=== PATIENT | male | born 1995 | race Caucasian/White ===

== ENCOUNTER 2018-03-22 22:21 | Emergency (ER) | payer OTHER ==
[2018-03-23] MEDS ORDERED: ONDANSETRON 4 MG/2 ML VIAL ONE (00:02)
[2018-03-23] MEDS ORDERED: NA CHLORIDE 0.9% 1,000 ML ONE (00:02)
[2018-03-23] MEDS ORDERED: ASPIRIN 81 MG CHEWABLE TABLET ONE (00:02)
[2018-03-23 00:07] LABS: Absolute Lymphocytes (CBC) 1.5 K/uL (0.7-4.9); Absolute Monocytes 0.5 K/uL (0.1-1.3); Absolute Neutrophil 5.4 K/uL (1.8-8.0); Basophils % 0.3 % (0-1.3); Eosinophils % 0.5 % (0-4.4); Hematocrit 41.7 % (39.6-49.0); Lymphocytes % 20.3 % (15.3-44.8); MCH 31.6 pg (27.0-35.0); MCV 91.4 fL (80-100); MPV 8.9 fL (7.6-11.3); Monocytes % 6.9 % (3.3-12.3); RBC Red Blood Cell Count 4.56 M/uL (4.33-5.43)
[2018-03-23 00:11] LABS: Protime INR 1.03
[2018-03-23 00:29] LABS: ALT/SGPT 51 U/L (12-78); AST/SGOT 29 U/L (15-37); Albumin 4.3 g/dL (3.4-5.0); Alkaline Phosphatase 60 U/L (45-117); BUN Blood Urea Nitrogen 13 mg/dL (7-18); Bicarbonate 29 mmol/L (21-32); Bilirubin Direct 0.1 mg/dL (0-0.2); Bilirubin Total 0.4 mg/dL (0.2-1.0); CKMB Creatine Kinase MB < 1.0 ng/mL (0.3-3.6); Creatine Phosphokinase 99 U/L (39-308); Glucose Level 79 mg/dL (74-106); Lipase 126 U/L (73-393); Magnesium 2.1 mg/dL (1.8-2.4); NT PRO-BNP 26 pg/mL (<125); Potassium 3.9 mmol/L (3.5-5.1); Sodium Level 143 mmol/L (136-145)
--- NOTE | 2018-03-23 03:38 | EDPHYS ---
Physician Documentation [facility] Name: Jose Francisco Gomez Age: 23 yrs Sex: Male : 1995 Arrival Date: 03/22/2018 Time: 22:22 Bed 8 Private MD: Jose Chambers ED Physician Howard Zamudio HPI: 03/22 23:17 This 23 yrs old Male presents to ER via Ambulatory with complaints of Chest aggie Pain, Numbness, Shortness Of Breath. 23:17 The patient or guardian reports chest pain that is located primarily in the substernal aggie area, anterior chest wall, bilaterally. The pain does not radiate. Associated signs and symptoms: The patient has no apparent associated signs or symptoms. The chest pain is described as a heaviness, a pressure. Duration: The patient or guardian reports multiple episodes, with no pattern. Modifying factors: The symptoms are alleviated by nothing. the symptoms are aggravated by nothing. Severity of pain: At its worst the pain was mild in the emergency department the pain is unchanged. The patient has not experienced similar symptoms in the past. Historical: - Allergies: 22:39 No Known Allergies; ak1 - Home Meds: 22:39 None [Active]; ak1 - PMHx: 22:39 MVP; ak1 - PSHx: 22:39 None; ak1 - Immunization history:: Adult Immunizations unknown. - Social history:: Smoking status: Patient uses tobacco products, smokes one-half pack cigarettes per day. - Ebola Screening: : No symptoms or risks identified at this time. - Family history:: not pertinent. ROS: 23:17 Constitutional: Negative for fever, chills, and weight loss, Eyes: Negative for injury, aggie pain, redness, and discharge, ENT: Negative for injury, pain, and discharge, Neck: Negative for injury, pain, and swelling, Respiratory: Negative for shortness of breath, cough, wheezing, and pleuritic chest pain, Abdomen/GI: Negative for abdominal pain, nausea, vomiting, diarrhea, and constipation, Back: Negative for injury and pain, : Negative for injury, bleeding, discharge, and swelling, MS/Extremity: Negative for injury and deformity, Skin: Negative for injury, rash, and discoloration, Neuro: Negative for headache, weakness, numbness, tingling, and seizure, Psych: Negative for depression, anxiety, suicide ideation, homicidal ideation, and hallucinations, Allergy/Immunology: Negative for hives, rash, and allergies, Endocrine: Negative for neck swelling, polydipsia, polyuria, polyphagia, and marked weight changes, Hematologic/Lymphatic: Negative for swollen nodes, abnormal bleeding, and unusual bruising. 23:17 Cardiovascular: Positive for chest pain. Exam: 23:17 Constitutional: This is a well developed, well nourished patient who is awake, alert, aggie and in no acute distress. Head/Face: Normocephalic, atraumatic. Eyes: Pupils equal round and reactive to light, extra-ocular motions intact. Lids and lashes normal. Conjunctiva and sclera are non-icteric and not injected. Cornea within normal limits. Periorbital areas with no swelling, redness, or edema. ENT: Nares patent. No nasal discharge, no septal abnormalities noted. Tympanic membranes are normal and external auditory canals are clear. Oropharynx with no redness, swelling, or masses, exudates, or evidence of obstruction, uvula midline. Mucous membranes moist. Neck: Trachea midline, no thyromegaly or masses palpated, and no cervical lymphadenopathy. Supple, full range of motion without nuchal rigidity, or vertebral point tenderness. No Meningismus. Chest/axilla: Normal chest wall appearance and motion. Nontender with no deformity. No lesions are appreciated. Cardiovascular: Regular rate and rhythm with a normal S1 and S2. No gallops, murmurs, or rubs. Normal PMI, no JVD. No pulse deficits. Respiratory: Lungs have equal breath sounds bilaterally, clear to auscultation and percussion. No rales, rhonchi or wheezes noted. No increased work of breathing, no retractions or nasal flaring. Abdomen/GI: Soft, non-tender, with normal bowel sounds. No distension or tympany. No guarding or rebound. No evidence of tenderness throughout. Back: No spinal tenderness. No costovertebral tenderness. Full range of motion. Male : Normal genitalia with no discharge or lesions. Skin: Warm, dry with normal turgor. Normal color with no rashes, no lesions, and no evidence of cellulitis. MS/ Extremity: Pulses equal, no cyanosis. Neurovascular intact. Full, normal range of motion. Neuro: Awake and alert, GCS 15, oriented to person, place, time, and situation. Cranial nerves II-XII grossly intact. Motor strength 5/5 in all extremities. Sensory grossly intact. Cerebellar exam normal. Normal gait. Psych: Awake, alert, with orientation to person, place and time. Behavior, mood, and affect are within normal limits. Vital Signs: 22:39 BP 143 / 92; Pulse 93; Resp 16; Temp 98.2; Pulse Ox 99% on R/A; Weight 99.79 kg (R); ak1 Height 6 ft. 4 in. (193.04 cm) (R); Pain 0/10; 22:52 BP 133 / 73; Pulse 90; Resp 20; Pulse Ox 98% on R/A; mt 23:56 BP 136 / 88; Pulse 81; Resp 16; Pulse Ox 99% on R/A; Pain 0/10; aa1 03/23 00:32 BP 121 / 85; Pulse 70; Resp 16; Pulse Ox 99% on R/A; mt 01:54 BP 125 / 71; Pulse 68; Resp 20; Pulse Ox 99% on R/A; mt 03:04 BP 121 / 73; Pulse 64; Resp 20; Pulse Ox 97% on R/A; Pain 0/10; aa1 03/22 22:39 Body Mass Index 26.78 (99.79 kg, 193.04 cm) [facility] MDM: 03/22 23:07 Patient medically screened. [facility] 23:22 Data reviewed: vital signs, nurses notes, lab test result(s), EKG, radiologic studies. [facility] 03/22 23:16 Order name: Basic Metabolic Panel; Complete Time: 00:44 [facility] 03/22 23:16 Order name: CBC with Diff; Complete Time: 00:44 [facility] 03/22 23:16 Order name: Ckmb; Complete Time: 00:44 [facility] 03/22 23:16 Order name: CPK; Complete Time: 00:44 [facility] 03/22 23:16 Order name: LFT's; Complete Time: 00:44 [facility] 03/22 23:16 Order name: Magnesium; Complete Time: 00:44 [facility] 03/22 23:16 Order name: NT PRO-BNP; Complete Time: 00:44 [facility] 03/22 23:16 Order name: PT-INR; Complete Time: 00:44 [facility] 03/22 23:16 Order name: Ptt, Activated; Complete Time: 00:44 [facility] 03/22 23:16 Order name: Troponin (emerg Dept Use Only); Complete Time: 00:44 [facility] 03/22 23:16 Order name: XRAY Chest (1 view) [facility] 03/22 23:16 Order name: Lipase; Complete Time: 00:44 [facility] 03/22 23:16 Order name: CT Chest For PE Angio [facility] 03/22 22:41 Order name: EKG - Nurse/Tech; Complete Time: 22:41 [facility] 03/22 23:16 Order name: EKG; Complete Time: 23:26 [facility] 03/22 23:16 Order name: Cardiac monitoring; Complete Time: 23:48 [facility] 03/22 23:16 Order name: IV Saline Lock; Complete Time: 23:48 [facility] 03/22 23:16 Order name: Labs collected and sent; Complete Time: 23:48 [facility] 03/22 23:16 Order name: O2 Per Protocol; Complete Time: 23:48 [facility] 03/22 23:16 Order name: O2 Sat Monitoring; Complete Time: 23:48 [facility] Administered Medications: 03/23 00:04 Drug: NS 0.9% 1000 ml Route: IV; Rate: 125 ml/hr; Site: right antecubital; aa1 03:43 Follow up: IV Status: Order to discontinue infusion ak1 00:04 Drug: Aspirin 162 mg Route: PO; aa1 02:38 Follow up: Response: No adverse reaction aa1 00:04 Drug: Zofran 4 mg Route: IVP; Site: right antecubital; aa1 02:38 Follow up: Response: No adverse reaction; Nausea is decreased aa1 Disposition: 03/23/18 03:37 Discharged to Home. Impression: Chest pain, unspecified. - Condition is Stable. - Discharge Instructions: Nonspecific Chest Pain, Nonspecific Chest Pain, [id number], Aspirin and Your Heart. - Medication Reconciliation Form, Thank You Letter, Antibiotic Education, Prescription Opioid Use form. - Follow up: Jose Chambers; When: 2 - 3 days; Reason: Recheck today's complaints, Continuance of care, Re-evaluation by your physician. - Problem is new. - Symptoms have improved. Signatures: Dispatcher [employer] Joanna Mendez RN RN aa1 Robb, Howard, MD MD aggie Krenek, Lacey, RN RN ak1 Corrections: (The following items were deleted from the chart) 03:43 03/22 23:16 Urine Dipstick-Ancillary ordered. aggie ak1 03/23 03:44 03:37 03/23/2018 03:37 Discharged to Home. Impression: Chest pain, unspecified. ak1 Condition is Stable. Discharge Instructions: Nonspecific Chest Pain, Nonspecific Chest Pain, [id number], Aspirin and Your Heart. Forms are Medication Reconciliation Form, Thank You Letter, Antibiotic Education, Prescription Opioid Use. Follow up: Jose Chambers; When: 2 - 3 days; Reason: Recheck today's complaints, Continuance of care, Re-evaluation by your physician. Problem is new. Symptoms have improved. aggie
--- NOTE | 2018-03-23 03:38 | ER ---
Nurse's Notes [facility] Name: Jose Francisco Gomez Age: 23 yrs Sex: Male : 1995 Arrival Date: 03/22/2018 Time: 22:22 Bed 8 Private MD: Jose Chambers Diagnosis: Chest pain, unspecified Presentation: 03/22 22:37 Presenting complaint: Patient states: sharp chest pains intermittent since March 11. ak1 pt with hx MVP sees Dr. Dick. pt c/o increased frequency of chest pains under bilateral breast with SOB 1 hour ON AIR TALENT. Transition of care: patient was not received from another setting of care. Onset of symptoms is unknown. Risk Assessment: Do you want to hurt yourself or someone else? Patient reports no desire to harm self or others. Initial Sepsis Screen: Does the patient meet any 2 criteria? No. Patient's initial sepsis screen is negative. Does the patient have a suspected source of infection? No. Patient's initial sepsis screen is negative. Care prior to arrival: None. 22:37 Method Of Arrival: Ambulatory ak1 22:37 Acuity: MARKY 3 ak1 Triage Assessment: 22:39 General: Appears in no apparent distress. Behavior is calm, cooperative. Pain: ak1 Complains of pain in diaphragm, right breast and left breast. EENT: No signs and/or symptoms were reported regarding the EENT system. Neuro: No deficits noted. Cardiovascular: Reports chest pain, shortness of breath. Respiratory: Reports shortness of breath. GI: No signs and/or symptoms were reported involving the gastrointestinal system. : No signs and/or symptoms were reported regarding the genitourinary system. Derm: No signs and/or symptoms reported regarding the dermatologic system. Musculoskeletal: No signs and/or symptoms reported regarding the musculoskeletal system. Historical: - Allergies: 22:39 No Known Allergies; ak1 - Home Meds: 22:39 None [Active]; ak1 - PMHx: 22:39 MVP; ak1 - PSHx: 22:39 None; ak1 - Immunization history:: Adult Immunizations unknown. - Social history:: Smoking status: Patient uses tobacco products, smokes one-half pack cigarettes per day. - Ebola Screening: : No symptoms or risks identified at this time. - Family history:: not pertinent. Screenin:40 Abuse screen: Denies threats or abuse. Denies injuries from another. Abuse screen: ak1 Denies threats or abuse. Nutritional screening: No deficits noted. Tuberculosis screening: No symptoms or risk factors identified. Fall Risk None identified. Assessment: 22:40 Pain: Pain radiates to left foot, left arm and left leg Pain began March 11. ak1 22:42 General: Appears in no apparent distress. comfortable, Behavior is calm, cooperative, aa1 appropriate for age. Pain: Complains of pain in left breast and right breast and diaphragm Pain currently is 0 out of 10 on a pain scale. Quality of pain is described as pressure, Pain began 03/11/18 Is intermittent. Neuro: Level of Consciousness is awake, alert, obeys commands, Oriented to person, place, time, situation, Moves all extremities. Full function Gait is steady, Speech is normal. Cardiovascular: Reports chest pain, shortness of breath, Denies diaphoresis, lightheadedness, nausea, palpitations, vomiting, Heart tones S1 S2 present Capillary refill Clubbing of nail beds is absent JVD is absent Patient's skin is warm and dry. Rhythm is regular. Respiratory: Reports shortness of breath at rest Airway is patent Respiratory effort is even, unlabored, Respiratory pattern is regular, symmetrical. GI: No signs and/or symptoms were reported involving the gastrointestinal system. : No signs and/or symptoms were reported regarding the genitourinary system. EENT: No signs and/or symptoms were reported regarding the EENT system. Derm: Skin is intact, is healthy with good turgor, Skin is pink, warm \T\ dry. Musculoskeletal: Circulation, motion, and sensation intact. Capillary refill < 3 seconds. 03/23 00:05 Reassessment: Patient appears in no apparent distress at this time. Patient and/or aa1 family updated on plan of care and expected duration. Pain level reassessed. Patient is alert, oriented x 3, equal unlabored respirations, skin warm/dry/pink. Awaiting lab results and CT scan. Pt reports feeling nauseated after having IV and blood draw. Medicated with Zofran. 01:00 Reassessment: Patient appears in no apparent distress at this time. Patient and/or aa1 family updated on plan of care and expected duration. Pain level reassessed. Patient is alert, oriented x 3, equal unlabored respirations, skin warm/dry/pink. Awaiting CT scan. 02:00 Reassessment: Patient appears in no apparent distress at this time. Patient and/or aa1 family updated on plan of care and expected duration. Pain level reassessed. Patient is alert, oriented x 3, equal unlabored respirations, skin warm/dry/pink. Awaiting CT results. 03:03 Reassessment: Patient appears in no apparent distress at this time. Patient and/or aa1 family updated on plan of care and expected duration. Pain level reassessed. Patient is alert, oriented x 3, equal unlabored respirations, skin warm/dry/pink. Awaiting CT and repeat trop results. Vital Signs: 03/22 22:39 BP 143 / 92; Pulse 93; Resp 16; Temp 98.2; Pulse Ox 99% on R/A; Weight 99.79 kg (R); ak1 Height 6 ft. 4 in. (193.04 cm) (R); Pain 0/10; 22:52 BP 133 / 73; Pulse 90; Resp 20; Pulse Ox 98% on R/A; mt 23:56 BP 136 / 88; Pulse 81; Resp 16; Pulse Ox 99% on R/A; Pain 0/10; aa1 03/23 00:32 BP 121 / 85; Pulse 70; Resp 16; Pulse Ox 99% on R/A; mt 01:54 BP 125 / 71; Pulse 68; Resp 20; Pulse Ox 99% on R/A; mt 03:04 BP 121 / 73; Pulse 64; Resp 20; Pulse Ox 97% on R/A; Pain 0/10; aa1 03/22 22:39 Body Mass Index 26.78 (99.79 kg, 193.04 cm) ak1 ED Course: 03/22 22:22 Patient arrived in ED. ds1 22:22 Jose Chambers MD is Private Physician. ds1 22:38 Triage completed. ak1 22:39 Joanna Morel RN is Primary Nurse. aa1 22:39 Arm band placed on Patient placed in an exam room, on a stretcher, on pulse oximetry, ak1 Patient notified of wait time. 22:40 Patient has correct armband on for positive identification. Placed in gown. Bed in low ak1 position. Call light in reach. Side rails up X 1. Adult w/ patient. Pulse ox on. NIBP on. 22:41 EKG completed in triage. Results shown to MD. ak1 22:41 Patient maintains SpO2 saturation greater than 95% on room air. ak1 23:07 Howard Zamudio MD is Attending Physician. [facility] 23:47 X-ray completed. Portable x-ray completed in exam room. Patient tolerated procedure kw well. 23:47 Inserted saline lock: 20 gauge in right antecubital area, using aseptic technique. il Blood collected. 23:48 XRAY Chest (1 view) In Process Unspecified. EDAZ 03/23 01:30 CT Chest For PE Angio In Process Unspecified. EDAZ 01:53 CT completed. Patient tolerated procedure well. Patient moved to CT via stretcher. Patient moved back from CT. 03:37 Jose Chambers MD is Referral Physician. aggie 03:44 No provider procedures requiring assistance completed. IV discontinued, intact, ak1 bleeding controlled, No redness/swelling at site. Pressure dressing applied. Administered Medications: 00:04 Drug: NS 0.9% 1000 ml Route: IV; Rate: 125 ml/hr; Site: right antecubital; aa1 03:43 Follow up: IV Status: Order to discontinue infusion ak1 00:04 Drug: Aspirin 162 mg Route: PO; aa1 02:38 Follow up: Response: No adverse reaction aa1 00:04 Drug: Zofran 4 mg Route: IVP; Site: right antecubital; aa1 02:38 Follow up: Response: No adverse reaction; Nausea is decreased aa1 Outcome: 03:37 Discharge ordered by . aggie 03:44 Discharged to home ambulatory, with family. ak1 03:44 Condition: improved 03:44 Discharge instructions given to patient, Instructed on discharge instructions, follow up and referral plans. Demonstrated understanding of instructions, follow-up care. 03:44 Patient left the ED. ak1 Signatures: Dispatcher [employer] [facility] Joanna Morel, TATIANNA RN [email or web address] Howard Zamudio MD MD cha Hagler, Ervin Rain Finnegan dsSandi Jeffers Amber, RN RN Aleah Chadwick mt Corrections: (The following items were deleted from the chart) 01:55 03/22 22:52 BP 133 / 73; Pulse 90bpm; Resp 27bpm; Pulse Ox 98% RA; mt mt
--- NOTE | 2018-03-23 08:30 | RAD REPORT ---
EXAM DESCRIPTION: RAD - Chest Single View - 03/22/2018 11:50 pm CLINICAL HISTORY: Chest pain;Dyspnea Chest pain. COMPARISON: Chest For Pe Angio dated 03/23/2018 FINDINGS: Portable technique limits examination quality. The lungs are grossly clear. The heart is normal in size. No displaced fractures. IMPRESSION: No acute intrathoracic process suspected.
--- NOTE | 2018-03-23 08:44 | RAD REPORT ---
EXAM DESCRIPTION: CT - Chest For Pe Angio - 03/23/2018 6:43 am CLINICAL HISTORY: Chest pain. CHEST PAIN COMPARISON: No comparisons TECHNIQUE: CT angiogram of the pulmonary arteries was performed with MIP. All CT scans are performed using dose optimization technique as appropriate and may include automated exposure control or mA/KV adjustment according to patient size. FINDINGS: No evidence of pulmonary thromboembolism. No acute aortic finding demonstrated. The lungs are clear. 2 cm area of soft tissue seen in the prevascular space, nonspecific. No significant pericardial or pleural fluid. No concerning bony finding. IMPRESSION: No evidence of pulmonary thromboembolism. No acute lung findings. 2 cm soft tissue density in the prevascular space may be related to thymic tissue. Advise follow-up C T chest in 6 months for continued surveillance.
--- NOTE | 2018-03-23 21:39 | EKG ---
Test Date: 2018-03-22 Test Time: 22:32:51 Sandblasting Supervisor: MEASUREMENT RESULTS: Intervals: Rate: 84 IL: 160 QRSD: 94 QT: 326 QTc: 385 [place]: P: 43 IL: 160 QRS: 52 T: 56 INTERPRETIVE STATEMENTS: Normal sinus rhythm Normal ECG No previous ECG available for comparison Electronically Signed On 03-23-18 21:38:46 CDT by Jasbir Johnston
== END 2018-03-23 03:44 | disposition home or self-care (01) ==
LOC: ER 22:21
DX: R07.9 Chest pain, unspecified (principal); F17.210 Nicotine dependence, cigarettes, uncomplicated
CPT/HCPCS: 36415; 71045; 71275; 80048; 80076; 82550; 82553; 83690; 83735; 83880; 84484; 85025; 85610; 85730; 93005; 96361; 96374; 99285; J2405; J7030; Q9967

== ENCOUNTER 2021-05-09 12:13 | Emergency (ER) | payer OTHER, SELFPAY ==
[2021-05-09 14:41] LABS: Protime INR 1.03
[2021-05-09 14:42] LABS: Absolute Lymphocytes (CBC) 1.4 K/uL (0.7-4.9); Basophils % 0.2 % (0-1.3); Hematocrit 41.5 % (39.6-49.0); Lymphocytes % 21.2 % (15.3-44.8); MPV 8.7 fL (7.6-11.3); RBC Red Blood Cell Count 4.62 M/uL (4.33-5.43)
[2021-05-09] MEDS ORDERED: NA CHLORIDE 0.9% 1,000 ML ONE (14:44)
[2021-05-09 14:59] LABS: ALT/SGPT 57 U/L (12-78); AST/SGOT 19 U/L (15-37); Albumin 4.4 g/dL (3.4-5.0); Alkaline Phosphatase 63 U/L (45-117); BUN Blood Urea Nitrogen 13 mg/dL (7-18); Bicarbonate 28 mmol/L (21-32); Bilirubin Direct 0.2 mg/dL (0-0.2); Bilirubin Total 0.5 mg/dL (0.2-1.0); Glucose Level 84 mg/dL (74-106); Magnesium 1.8 mg/dL (1.8-2.4); NT PRO-BNP 29 pg/mL (<125); Potassium 4.1 mmol/L (3.5-5.1); Protein, Total 8.1 g/dL (6.4-8.2); Sodium Level 139 mmol/L (136-145); Troponin (Emerg Dept Use Only) < 0.02 ng/mL (0.0-0.045)
--- NOTE | 2021-05-09 15:23 | RAD REPORT ---
EXAM DESCRIPTION: RAD - Chest Single View - 05/09/2021 3:10 pm CLINICAL HISTORY: CHEST PAIN COMPARISON: Chest Single View dated 03/22/2018 FINDINGS: No evidence of edema or pneumonia. The heart size is within normal limits.No acute osseous abnormality. No significant pleural effusions or pneumothorax. IMPRESSION: No acute cardiopulmonary disease.
--- NOTE | 2021-05-09 17:37 | ER ---
Nurse's Notes [facility] Name: Jose Francisco Gomez Age: 26 yrs Sex: Male : 1995 Arrival Date: 05/09/2021 Time: 12:21 Bed 26 Private MD: Diagnosis: Chest pain, unspecified;Palpitations Presentation: 05/09 12:30 Chief complaint: Patient states: "I am having trouble breathing and feel like my heart aa5 is skipping beats". Pt denies recent illness. Coronavirus screen: At this time, the client does not indicate any symptoms associated with coronavirus-19. Ebola Screen: Patient negative for fever greater than or equal to 101.5 degrees Fahrenheit, and additional compatible Ebola Virus Disease symptoms. Risk Assessment: Do you want to hurt yourself or someone else? Patient reports no desire to harm self or others. Onset of symptoms was May 09, 2021. 12:30 Method Of Arrival: Ambulatory aa5 12:30 Acuity: MARKY 3 aa5 12:30 Initial Sepsis Screen: Does the patient meet any 2 criteria? No. Patient's initial aa5 sepsis screen is negative. Does the patient have a suspected source of infection? No. Patient's initial sepsis screen is negative. Historical: - Allergies: 12:31 No Known Allergies; aa5 - PMHx: 12:31 Mitral Valve Prolapse; aa5 - PSHx: 12:31 None; aa5 - Immunization history:: Client reports having NOT received the Covid vaccine. Flu vaccine is not up to date. - Social history:: Smoking status: Patient denies any tobacco usage or history of. Patient/guardian denies using street drugs. Assessment: 14:15 Also complains of diaphoresis, shortness of breath. General: Appears uncomfortable. ch5 General: Appears uncomfortable. Pain: Denies pain. Pain: Denies pain. Pain does not radiate. Pain began 1 day ago. Cardiovascular: Reports Pt reports palpitations today along with Chest discomfort. Denies Chest pain. Pt had near syncopal episode post IV start.Labs sent. Vital Signs: 12:30 BP 117 / 78; Pulse 70; Resp 20 S; Temp 97.5(TE); Pulse Ox 99% on R/A; Weight 71.21 kg aa5 (R); Height 6 ft. 4 in. (193.04 cm) (R); 14:15 BP 89 / 56; Pulse 66; Resp 20; Pulse Ox 100% on R/A; Pain 0/10; ch5 15:00 BP 107 / 72; Pulse 67; Resp 15; Pulse Ox 100% ; jl7 16:00 BP 115 / 69; Pulse 66; Resp 15; Pulse Ox 100% ; jl7 12:30 Body Mass Index 19.11 (71.21 kg, 193.04 cm) aa5 Vitals: 14:15 Cardiac Rhythm Assessment Irregular. ch5 ED Course: 12:21 Patient arrived in ED. ja2 12:30 Arm band placed on. aa5 12:31 Triage completed. aa5 12:35 EKG completed in triage. Results shown to MD. aa5 13:53 Bar Leon PA is PHCP. jmm 13:53 Howard Zamudio MD is Attending Physician. m 14:15 Jose Francisco Mendosa, TATIANNA is Primary Nurse. ch5 15:10 XRAY Chest (1 view) In Process Unspecified. EDMS Administered Medications: 14:28 Drug: NS 0.9% 1000 ml Route: IV; Rate: 1 bolus; Site: right antecubital; 5 Outcome: 17:36 Discharge ordered by MD. [facility] 18:39 Patient left the ED. 5 Signatures: Dispatcher [employer] EDMS Bar Leon PA PA jmm Calderon, Audri, RN RN [email or web address] Amanda Ruano RN RN jlJose Francisco Stanley, TATIANNA RN ch5 Calista Curry [facility] Corrections: (The following items were deleted from the chart) 12:32 12:30 Pulse 70bpm; Resp 20bpm; Spontaneous; Pulse Ox 99% RA; aa5 aa5 12:32 12:31 PMHx: MVP; aa5 aa5 12:33 12:30 Pulse 70bpm; Resp 20bpm; Spontaneous; Pulse Ox 99% RA; Temp 97.5F Temporal; 71.21 aa5 kg Reported; Height 6 ft. 4 in. Reported; BMI: 19.1; aa5 17:05 14:15 BP 89 / 56; Pulse 66bpm; Resp 56bpm; Pulse Ox 100% RA; Pain 0/10; ch5 ch5
--- NOTE | 2021-05-09 17:37 | EDPHYS ---
Physician Documentation [facility] Name: Jose Francisco Gomez Age: 26 yrs Sex: Male : 1995 Arrival Date: 05/09/2021 Time: 12:21 Bed 26 Private MD: MIGUE Physician Howard Zamudoi HPI: 05/09 14:03 This 26 yrs old Male presents to ER via Ambulatory with complaints of Chest jmm Pain. 14:03 The patient or guardian reports chest pain that is located primarily in the substernal jmm area. The pain does not radiate. Associated signs and symptoms: Pertinent positives: palpitations. The chest pain is described as aching. Duration: The patient or guardian reports a single episode, that is still ongoing. Modifying factors: The symptoms are alleviated by nothing. the symptoms are aggravated by nothing. 26-year-old male with history of mitral valve prolapse the presents emerged department with complaints of substernal chest pain beginning approx 1 hour prior to arrival. Patient describes pain as discomfort and palpitations. . Historical: - Allergies: 12:31 No Known Allergies; aa5 - PMHx: 12:31 Mitral Valve Prolapse; aa5 - PSHx: 12:31 None; aa5 - Immunization history:: Client reports having NOT received the Covid vaccine. Flu vaccine is not up to date. - Social history:: Smoking status: Patient denies any tobacco usage or history of. Patient/guardian denies using street drugs. ROS: 14:03 Constitutional: Negative for fever, chills, and weight loss. [facility] 14:03 Respiratory: Negative for shortness of breath, cough, wheezing, and pleuritic chest pain. 14:03 Cardiovascular: Positive for chest pain, palpitations. 14:03 All other systems are negative. Exam: 14:03 Constitutional: This is a well developed, well nourished patient who is awake, alert, jmm and in no acute distress. Head/Face: atraumatic. Eyes: EOMI, no conjunctival erythema appreciated ENT: Moist Mucus Membranes Neck: Trachea midline, Supple Chest/axilla: Normal chest wall appearance and motion. 14:03 Respiratory: Normal respirations, no respiratory distress appreciated Abdomen/GI: Non distended, soft Back: Normal ROM Skin: General appearance color normal MS/ Extremity: Moves all extremities, no obvious deformities appreciated, no edema noted to the lower extremities Neuro: Awake and alert, normal gait Psych: Behavior is normal, Mood is normal, Patient is cooperative and pleasant 14:03 Cardiovascular: Rate: normal, Rhythm: regular, Heart sounds: murmur. Vital Signs: 12:30 BP 117 / 78; Pulse 70; Resp 20 S; Temp 97.5(TE); Pulse Ox 99% on R/A; Weight 71.21 kg aa5 (R); Height 6 ft. 4 in. (193.04 cm) (R); 14:15 BP 89 / 56; Pulse 66; Resp 20; Pulse Ox 100% on R/A; Pain 0/10; ch5 15:00 BP 107 / 72; Pulse 67; Resp 15; Pulse Ox 100% ; jl7 16:00 BP 115 / 69; Pulse 66; Resp 15; Pulse Ox 100% ; jl7 12:30 Body Mass Index 19.11 (71.21 kg, 193.04 cm) aa5 MDM: 14:03 Patient medically screened. aggie 17:33 Data reviewed: vital signs, nurses notes. Counseling: I had a detailed discussion with starla the patient and/or guardian regarding: the historical points, exam findings, and any diagnostic results supporting the discharge/admit diagnosis, lab results, radiology results, the need for outpatient follow up, to return to the emergency department if symptoms worsen or persist or if there are any questions or concerns that arise at home. ED course: Patient states that he feels much better. Alert nontoxic in appearance in the ED. Labs and imaging studies are within normal limits. 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 Sharma for further evaluation and is otherwise given strict return precautions. The patient did, during his stay have an episode of hypotension which was brief and the patient was diaphoretic., After IV fluids and drinking some juice the patient blood pressure went back to normal. Patient states this occurs whenever he is giving blood. This is most likely a vasovagal syncopal reaction. Patient understood and agrees with the plan of care.. 05/09 14:13 Order name: Basic Metabolic Panel; Complete Time: 15:01 [facility] 05/09 14:13 Order name: CBC with Diff; Complete Time: 15: [facility] 05/09 14:13 Order name: LFT's; Complete Time: 15: [facility] 05/09 14:13 Order name: Magnesium; Complete Time: 15: [facility] 05/09 14:13 Order name: NT PRO-BNP; Complete Time: 15: [facility] 05/09 14:13 Order name: PT-INR; Complete Time: 15: [facility] 05/09 14:13 Order name: Troponin (emerg Dept Use Only); Complete Time: 15: [facility] 05/09 14:13 Order name: XRAY Chest (1 view); Complete Time: 15:24 [facility] 05/09 14:13 Order name: EKG; Complete Time: 14:16 [facility] 05/09 14:13 Order name: Cardiac monitoring; Complete Time: 14: [facility] 05/09 14:19 Order name: D-Dimer; Complete Time: 16: [facility] 05/09 17:00 Order name: SARS-COV-2 RT PCR; Complete Time: 17:14 [facility] 05/09 14:13 Order name: EKG - Nurse/Tech; Complete Time: 14: [facility] 05/09 14:13 Order name: IV Saline Lock; Complete Time: 14:28 [facility] 05/09 14:13 Order name: Labs collected and sent; Complete Time: 14:29 [facility] 05/09 14:13 Order name: O2 Per Protocol; Complete Time: 14: [facility] 05/09 14:13 Order name: O2 Sat Monitoring; Complete Time: 14:29 [facility] Administered Medications: 14:28 Drug: NS 0.9% 1000 ml Route: IV; Rate: 1 bolus; Site: right antecubital; ch5 Disposition: 05/10 05:31 Co-signature as Attending Physician, Howard Zamudio MD I agree with the assessment and aggie plan of care. Disposition Summary: 05/09/21 17:36 Discharge Ordered Location: Home [facility] Condition: Stable [facility] Diagnosis - Chest pain, unspecified jmm - Palpitations jm Followup: [facility] - With: Private Physician - When: As needed - Reason: Recheck today's complaints, Continuance of care, Re-evaluation by your physician Discharge Instructions: - Discharge Summary Sheet jmm - Nonspecific Chest Pain, Adult jmm - Palpitations jm Forms: - Medication Reconciliation Form jm - Thank You Letter jmm - Antibiotic Education jmm - Prescription Opioid Use jmm Signatures: Dispatcher [employer] EDMS Howard Zamudio MD MD cha Mickail, Joel, PA PA jmm Calderon, Audri, RN RN aa5 Jose Francisco Mendosa RN RN ch5 Corrections: (The following items were deleted from the chart) 05/09 12:32 12:31 PMHx: MVP; [email or web address] aa5 16:05 14:17 CORONAVIRUS+[email or web address].BRZ ordered. EDMS EDMS
[2021-05-09 18:50] VITALS: TEMP 97.5
[2021-05-09 18:52] VITALS: O2SAT 100
[2021-05-09 18:54] VITALS: BP 115/69
== END 2021-05-09 18:39 | disposition home or self-care (01) ==
LOC: ER 12:13
DX: R00.2 Palpitations (principal)
CPT/HCPCS: 36415; 71045; 80048; 80076; 83735; 83880; 84484; 85025; 85379; 85610; 93005; 99283; J7030; U0003